=== PATIENT | female | born 1950 | race Caucasian/White ===

== ENCOUNTER 2020-04-25 10:53 | Outpatient (CLI) | payer OTHER, MEDICARE, SELFPAY ==
--- NOTE | ~2020-04-25 | CT_ITS ---
EXAMINATION: CT abdomen pelvis wo con DATE: 04/25/2020 11:35 INDICATION: Hematuria. Right-sided mid to lower abdominal pain. TECHNIQUE: Computed tomography (CT) of the abdomen and pelvis was performed without intravenous contr ast. Automated exposure control and iterative reconstruction technique were employed. The dose-length product was 410.16 mGy-cm. COMPARISON: None. FINDINGS: The visualized portions of the lung bases demonstrate minimal atelectasis. Calcified right hilar lymph nodes are consistent with old granulomatous disease. No pleural effusion. The heart size is normal. There are coronary artery calcifications. No pericardial effusion. There is a small slidin g hiatal hernia. There are cysts in the liver measuring up to 5.7 cm. Calcifications in the spleen ar e consistent with old granulomatous disease. The gallbladder, pancreas, and adrenal glands are normal . There is a 12 mm mass containing fat in right kidney, consistent with an angiomyolipoma. There is a 1.6 cm staghorn calculus in left kidney upper pole. There are peripelvic cysts in left kidney lower pole. There is diverticulosis of the colon without evidence of diverticulitis. There are no dilated l oops of bowel. The appendix is normal. There are no pathologically enlarged lymph nodes. There is no free intraperitoneal fluid. There is severe lower thoracic spondylosis and moderate lumbar spondylosi s. IMPRESSION: 1. Staghorn calculus in left kidney upper pole. Reviewed, dictated and finalized at location B.
== END 2020-04-25 10:54 | disposition home or self-care (01) ==
LOC: ANHIMG 11:01
PROVIDERS: PCP Internal Medicine; Visit Provider Nurse Practitioner
DX: N20.0 Calculus of kidney (principal)
CPT/HCPCS: 74176

== ENCOUNTER → 2020-05-20 08:59 | Outpatient (CLI) | payer OTHER, MEDICARE, SELFPAY ==
--- NOTE | ~2020-05-20 | XR_ITS ---
EXAMINATION: XR abdomen/kub 1V INDICATION: Kidney stones TECHNIQUE: Supine views of the abdomen were obtained on 2 radiographs. COMPARISON: CT, 04/25/2020r FINDINGS: A 1.6 cm stone projects in the left kidney upper pole. No additional urolithiasis is identi fied. The bowel gas pattern is normal. The visualized lung bases are clear. 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 IMPRESSION: 1. Unchanged 1.6 cm stone of the left kidney upper pole. Reviewed, dictated and finalized at location A. ENSATION/BENEFITS SPECIALIST
== END ==
PROVIDERS: PCP Internal Medicine; Visit Provider Urology
DX: N20.0 Calculus of kidney (principal); M47.816 Spondylosis without myelopathy or radiculopathy, lumbar region; M47.818 Spondylosis without myelopathy or radiculopathy, sacral and sacrococcygeal region
CPT/HCPCS: 74018

== ENCOUNTER 2020-09-30 08:11 | Outpatient (CLI) | payer OTHER, MEDICARE, SELFPAY | END 2020-09-30 08:12 | disposition home or self-care (01) | LOC: ANHCOVIDVC 08:11 | PROVIDERS: PCP Nurse Practitioner | DX: Z23 Encounter for immunization (principal) | CPT/HCPCS: 0001A; 91300 ==

== ENCOUNTER 2020-10-21 08:16 | Outpatient (CLI) | payer OTHER, MEDICARE, SELFPAY | END 2020-10-21 08:17 | LOC: ANHCOVIDVC 08:16 | PROVIDERS: PCP Nurse Practitioner | DX: Z23 Encounter for immunization (principal) | CPT/HCPCS: 0002A; 91300 ==

== ENCOUNTER 2025-05-10 10:00 | Outpatient (CLI) | payer MEDICARE, SELFPAY ==
--- NOTE | ~2025-05-10 | CT_ITS ---
CT abdomen pelvis w con Clinical History: R19.06 - Epigastric swelling, mass or lump . Comparison: None Technique: Axial images lung bases to symphysis pubis 100 mL Omnipaque 350 Coronal, sagittal reformats CT images acquired with automatic exposure control for dose reduction DLP: 431 mGy-cm Findings: Lung bases: Clear. Visualized heart and pericardium: Coronary artery calcifications. Liver: Prominent bilobar cysts. Gallbladder: Unremarkable. Spleen: Unremarkable. Pancreas: Unremarkable. Adrenal glands: Unremarkable. Kidneys: Bilateral cysts. Right kidney- No hydronephrosis. No renal stones. Left kidney- No hydronephrosis. No renal stones. Distal esophagus/stomach: Unremarkable. Small bowel loops: Normal caliber and wall thickness. Colon: Diverticula. Normal caliber and wall thickness. Normal RLQ appendix. Nodes: No enlarged nodes. Peritoneum: No ascites. No free air. Urinary bladder: Unremarkable. Uterus: Unremarkable. Adnexa: No masses. Bones: No acute bony abnormality. Soft tissues: Supraumbilical ventral hernia containing fat, with stranding of fat. Aorta: No aneurysm or dissection. Atherosclerotic disease. IVC: Unremarkable. Main portal vein/SMV/splenic vein: Patent. IMPRESSION: 1. Supraumbilical ventral hernia containing fat, with evidence of panniculitis and/or fat strangulation. 2. No other acute abnormality. Reviewed, dictated and finalized at location R.
--- OUTSIDE RECORDS SUMMARY | 2025-05-10 10:18 | XMS_ITS | Clinical Summary ---
Author Organization [facility] Address [address] [place] [address] Phone Care Team Providers Care Tool Room Attendant Name Role Phone Rahul Martinez DO Primary Care Provider Allergies Active Allergy Reactions Criticality Noted Date Comments Aspirin Unknown 05/01/2018 Penicillins Swelling 05/01/2018 Hives and itching Medications atorvastatin (LIPITOR) 20 MG Tablet Take 20 mg by mouth daily. 0 9 Active traMADol (ULTRAM) 50 MG Tablet Take 1 Tab by mouth every 6 hours as needed for Moderate or more severe pain. 20 Tab 9 Active Additional Information Patient not taking.Reported on 06/23/2020 tamsulosin (FLOMAX) 0.4 MG CapsuleIndicati ons:Renal stone Take 1 Cap by mouth daily. 90 Cap 9 Active Additional Information Patient not taking.Reported on 06/23/2020 verapamil (CALAN-SR) 240 MG Tablet Controlled Release Take 240 mg by mouth daily. 0 Active triamterene-hyd rochlorothiazid e (MAXZIDE) 37.5-25 MG Tablet TAKE 1 TABLET BY MOUTH EVERY MORNING 0 Active Active Problems No known active problems Family History Medical History Relation Name Comments Parkinsonism Father Cancer Mother pancreatic Relation Name Status Comments Father Mother Social History Tobacco Use Types Packs/Day Years Used Date Smoking Tobacco: Former Cigarettes Q uit: 05/01/2013 Smokeless Tobacco: Never Tobacco Cessation:Counseling Given: No Alcohol Use Standard Drinks/Week Comments Yes 0 (1 standard drink = 0.6 oz pur e alcohol) rarely Comments No Sex and Gender Information Value Date Recorded Sex Assigned at Not on file Legal Sex Female 8:58 PM CDT Gender Identity Not on file Sexual Orientation Not on file Last Filed Vital Signs Vital Sign Reading Time Taken Comments Blood Pressure 140/86 06/23/2020 11:59 AM REGISTERED HEALTH NURSE Pulse 87 06/23/2020 11:59 AM REGISTERED HEALTH NURSE Temperature 36.1 C (97 F) 06/23/2020 11:59 AM REGISTERED HEALTH NURSE Respiratory Rate 20 06/23/2020 11:59 AM REGISTERED HEALTH NURSE Oxygen Saturation 96% 06/23/2020 11:59 AM REGISTERED HEALTH NURSE Inhaled Oxygen Concentration - - Weight 70.3 kg (155 lb) 06/23/2020 11:59 AM REGISTERED HEALTH NURSE Height 162.6 cm (5' 4) 02/22/2019 3:34 PM CDT Body Mass Index 26.61 02/22/2019 3:34 PM CDT Plan of Treatment Health Maintenance Due Date Last Done Comments DEXA Bone Density 1950 Hepatitis C Virus (HCV) Screening 1950 TdaP Immunization 1950 Cologuard 1994 Colonoscopy 1994 Colorectal Cancer Screening 1994 Immunochemical Fecal Occult Blood 1994 Pneumococcal Immunization (5 0+ years) (1 of 1 - PCV) 09/26/1999 Zoster Immunization (1 of 2) 09/26/1999 Medicare Initial AWV G0438 01/16/2016 Respiratory Syncytial Virus (RSV) Immunization (Adult) (1 - 1-dose 75+ series) 2024 Influenza Immunization (#1) 2025 05/25/2012 SARS-COV-2 Immunization (3 - season) 2025 10/21/2020, 09/30/2020 Mammogram Discontinued 08/13/2021, 04/17/2018 Hepatitis B Immunization Aged Out No longer eligible based on patient's age to complete this topic Human Papillomavirus (HPV) Immunization Aged Out No longer eligible based on patient's age to complete this topic Meningococcal Immunization (ACWY) Aged Out No longer eligible based on patient's age to complete this topic Rotavirus Immunization Aged Out No lo nger eligible based on patient's age to complete this topic Procedures Procedure Name Priority Date/Time Associated Diagnosis Comments GUME SCREENING BILATERAL DIGITAL W CAD W PAUL Routine 08/13/2021 5:14 PM REGISTERED HEALTH NURSE Visit for screening mammogram from Last 3 Months or Most Recently Relevant to Health Maintenance Results * GUME SCREENING BILATERAL DIGITAL W CAD W PAUL (08/13/2021 5:14 PM REGISTERED HEALTH NURSE) Anatomical Region Laterality Modality breast Bilateral Mammography 08/13/2021 4:41 PM REGISTERED HEALTH NURSE Narrative 08/17/2021 5:18 PM REGISTERED HEALTH NURSE - GUME SCREENING BILATERAL DIGITAL W CAD W PAUL BILATERAL DIGITAL SCREENING MAMMOGRAM 3D/2D WITH CAD WITH MEDIOLATERAL OBLIQUE CRANIOCAUDAL: 08/13/2021 The study was acquired using digital technology and interpreted from soft copy. Current study was also evaluated with JumpidoD version 7.2. 2D digital mammographic views, as well as 3D digital tomosynthesis were performed in the CC and MLO projections. CLINICAL: Routine screening. Patient has no complaints. No personal history of cancer. No family history of breast cancer. Limited ROM of shoulders. COMPARISONS: Comparison is made to exams dated: 04/17/2018, 12/27/2014, and 12/04/2010 [facility]. BREAST TISSUE:The tissue of both breasts is heterogeneously dense. This may lower the sensitivity of mammography. FINDINGS: There is a mass in the left breast at 1 o'clock posterior depth. There also is an asymmetry in the left breast anterior depth medial region seen on the craniocaudal view only. No other significant masses, calcifications, or other findings are seen in either breast. IMPRESSION: BI-RAD 0 ADDITIONAL IMAGING EVALUATION NEEDED The mass in the left breast at 1 o'clock posterior depth needs additional evaluation. The asymmetry in the left breast anterior depth medial region seen on the craniocaudal view only is indeterminate. An immediate follow-up is recommended. A letter will be sent to the patient with these results. Electronically signed by: Tessie dill/chucky:08/17/2021 14:59:52 Torch Heater(s): RT Santo(R)(M), [facility] letter sent: Additional Imaging Reading location: [facility] BI-RADS: 0 Additional Imaging Evaluation Needed Procedure Note Tessie Odom MD - 08/17/2021 - GUME SCREENING BILATERAL DIGITAL W CAD W PAUL BILATERAL DIGITAL SCREENING MAMMOGRAM 3D/2D WITH CAD WITH MEDIOLATERAL OBLIQUE CRANIOCAUDAL: 08/13/2021 The study was acquired using digital technology and interpreted from soft copy. Current study was also evaluated with ICAD version 7.2. 2D digital mammographic views, as well as 3D digital tomosynthesis were performed in the CC and MLO projections. CLINICAL: Routine screening. Patient has no complaints. No personal history of cancer. No family history of breast cancer. Limited ROM of shoulders. COMPARISONS: Comparison is made to exams dated: 04/17/2018, 12/27/2014, and 12/04/2010 [facility]. BREAST TISSUE:The tissue of both breasts is heterogeneously dense. This may lower the sensitivity of mammography. FINDINGS: There is a mass in the left breast at 1 o'clock posterior depth. There also is an asymmetry in the left breast anterior depth medial region seen on the craniocaudal view only. No other significant masses, calcifications, or other findings are seen in either breast. IMPRESSION: BI-RAD 0 ADDITIONAL IMAGING EVALUATION NEEDED The mass in the left breast at 1 o'clock posterior depth needs additional evaluation. The asymmetry in the left breast anterior depth medial region seen on the craniocaudal view only is indeterminate. An immediate follow-up is recommended. A letter will be sent to the patient with these results. Electronically signed by: Tessie dill/chucky:08/17/2021 14:59:52 Torch Heater(s): RT Santo(R)(M), [facility] letter sent: Additional Imaging Reading location: [facility] BI-RADS: 0 Additional Imaging Evaluation Needed Genevieve Cotto APRN IMG MAMMO ORDERABLES Final Re sult from Last 3 Months or Most Recently Relevant to Health Maintenance Insurance MEDICARE C [place] Care Teams Tool Room Attendant Relationship Specialty Start Date End Date Rahul Martinez DO [address] [facility] [facility] [place], [place] [id number] PCP - General Internal Medicine 06/01/22
--- OUTSIDE RECORDS SUMMARY | 2025-05-10 10:18 | XMS_ITS | Encounter Summary ---
Author Organization [facility] Address [address] [place] [address] Phone Care Team Providers Care Juvenile Probation Officer Name Role Phone Genevieve Cotto APRN Primary Care Provider [phone] Rahul Martinez DO Primary Care Provider Encounter Details Date Type Department Care Team (Latest Contact Info) Description 06/23/2021 Transcribe Orders [facility] Patient Access [facility] [address] [facility] [place] [address] Genevieve Cotto APRN [address] [place] [address] Screening for thyroid disorder (Primary Dx); Hyperglycemia; Encounter for screening for other suspected endocrine disorder; Screening for lipoid disorders Social History Tobacco Use Types Packs/Day Years Used Date Smoking Tobacco: Former Cigarettes Q uit: 05/01/2013 Smokeless Tobacco: Never Alcohol Use Standard Drinks/Week Comments Yes 0 (1 standard drink = 0.6 oz pur e alcohol) rarely Comments No Sex and Gender Information Value Date Recorded Sex Assigned at Not on file Legal Sex Female 8:58 PM CDT Gender Identity Not on file Sexual Orientation Not on file COVID-19 Exposure Response Date Recorded In the last month, have you been in contact with someone who was confirmed or suspected to have Coronavirus / COVID-19? No / Unsure 06/23/2021 9:21 AM REGIONAL FACILITIES MANAGER documented as of this encounter Plan of Treatment Not on file documented as of this encounter Results * (ABNORMAL) LIPID PANEL (06/23/2021 9:53 AM REGIONAL FACILITIES MANAGER) Pathologist [facility] CHOLESTEROL 232(H) <=200 mg/dL 06/23/2021 10:36 AM REGIONAL FACILITIES MANAGER [facility] TRIGLYCERIDES 158(H) <150 mg/dL 06/23/2021 10:36 AM REGIONAL FACILITIES MANAGER [facility] HDL CHOLESTEROL 55.1 >40 mg/dL 10:36 AM [facility] LDL 145(H) 5 - 130 mg/dL 06/23/2021 10:36 AM REGIONAL FACILITIES MANAGER [facility] VLDL 32 5 - 55 mg/dL 06/23/2021 10:36 AM [facility] CHOL/HDL RATIO 4.2 0.0 - 4.4 06/23/2021 10:36 AM [facility] NON-HDL CHOLESTEROL 176.9(H) <130 mg/dL 06/23/2021 10:36 AM [facility] IS THE PATIENT REQUIRED TO BE FASTING? No 06/23/2021 10:36 AM [facility] Blood Venipuncture / Unknown 06/23/2021 9:53 AM REGIONAL FACILITIES MANAGER 06/23/2021 10:10 AM REGIONAL FACILITIES MANAGER us Genevieve Cotto APRN CHEMISTRY ORDERABLES Final Re sult [facility] [address] [place] [address] * (ABNORMAL) HEMOGLOBIN A1C W/ ESTIMATED GLUCOSE (06/23/2021 9:53 AM REGIONAL FACILITIES MANAGER) [facility] HGB-A1C 6.2(H) 4.0 - 6.0 % 06/23/2021 10:45 AM [facility] Est Average Glucose 131.2 mg/dL 06/23/2021 10:45 AM [facility] Blood Venipuncture / Unknown 06/23/2021 9:53 AM REGIONAL FACILITIES MANAGER 06/23/2021 10:10 AM REGIONAL FACILITIES MANAGER Narrative [facility] - 06/23/2021 10:45 AM REGIONAL FACILITIES MANAGER HEMOGLOBIN A1C: DIABETIC PATIENTS: WELL-CONTROLLED: 6.2 - 7.0 INTERMEDIATE WELL-CONTROLLED: 7.0 - 9.0 POORLY-CONTROLLED: >9.0 us Genevieve Cotto CARNIVAL WORKER CHEMISTRY ORDERABLES Final Re sult [facility] [place] [address] * (ABNORMAL) CMP (COMPREHENSIVE METABOLIC PANEL) (06/23/2021 9:53 AM [facility]) SODIUM 139 136 - 144 mmol/L 06/23/2021 10:36 AM [facility] POTASSIUM 3.9 3.5 - 5.1 mmol/L 06/23/2021 10:36 AM [facility] CHLORIDE 103 100 - 110 mmol/L 06/23/2021 10:36 AM [facility] CO2, VENOUS 23 22 - 32 mmol/L 06/23/2021 10:36 AM [facility] ANION GAP 16.9 8.0 - 20.0 mmol/L 06/23/2021 10:36 AM [facility] GLUCOSE 108(H) 70 - 99 mg/dL 06/23/2021 10:36 AM [facility] BUN 12 8 - 23 mg/dL 06/23/2021 10:36 AM [facility] CREATININE, BLOOD 0.52(L) 0.60 - 1.10 mg/dL 06/23/2021 10:36 AM [facility] BUN/CREATININE RATIO 23(H) 12 - 20 ratio 06/23/2021 10:36 AM [facility] TOTAL PROTEIN 7.7 6.0 - 8.3 g/dL 06/23/2021 10:36 AM [facility] ALBUMIN 4.5 3.5 - 5.2 g/dL 06/23/2021 10:36 AM [facility] Comment: The colormetric methods used for the determination of Albumin may lead to falsely elevated test results in patients suffering from renal failure or insufficiency due to interference with other proteins. A/G RATIO 1.4 1.0 - 2.0 06/23/2021 10:36 AM [facility] CALCIUM 9.4 8.9 - 10.3 mg/dL 06/23/2021 10:36 AM [facility] T BILI 0.5 <=1.2 mg/dL 06/23/2021 10:36 AM [facility] SGOT (AST) 18 <=32 U/L 06/23/2021 10:36 AM [facility] SGPT (ALT) 16 <=41 U/L 06/23/2021 10:36 AM [facility] ALKALINE PHOSPHATASE 85 35 - 105 U/L 06/23/2021 10:36 AM [facility] GFR, EST. NONAFRICAN >60 >=60 06/23/2021 10:36 AM [facility] GFR, EST. >60 >=60 021 10:36 AM [facility] Comment: Creatinine Clearance is the preferred criteria for selecting drug dose adjustments in renally impaired patients. The GFR is provided as additional pertinent clinical information. GFR is reported in mL/min/1.73 sq m. IS THE PATIENT REQUIRED TO BE FASTING? No 06/23/2021 10:36 AM [facility] Blood Venipuncture / Unknown 06/23/2021 9:53 AM [facility] 06/23/2021 10:10 AM [facility] us Genevieve Cotto CARNIVAL WORKER CHEMISTRY ORDERABLES Final Re sult [facility] [place] [address] documented in this encounter Visit Diagnoses Diagnosis Screening for thyroid disorder- Primary Hyperglycemia Other abnormal glucose Encounter for screening for other suspected endocrine disorder Screening for lipoid disorders documented in this encounter Care Teams Juvenile Probation Officer Relationship Specialty Start Date End Date Genevieve Cotto APRN [address] [place] [address] PCP - General Pain Medicine-Pain Management 09/24/20 05/31/22 Rahul Martinez DO [address] [place] [address] PCP - General Internal Medicine 06/01/22 documented as of this encounter
--- OUTSIDE RECORDS SUMMARY | 2025-05-10 10:18 | XMS_ITS | Encounter Summary ---
Author Organization [facility] Address [address] [place] [address] Phone Care Team Providers Care Photo Equipment Technician Name Role Phone Timothy Soto MD Primary Care Provid er Genevieve Cotto APRN Primary Care Provider [phone] Rahul Martinez DO Primary Care Provider Encounter Details Date Type Department Care Team (Latest Contact Info) Description 06/27/2020 [facility] [place] [address] [place] [address] [place] [address] Calculus of kidney (Primary Dx) Social History Tobacco Use Types Packs/Day Years [...] have Coronavirus / COVID-19? No / Unsure 06/30/2020 1:52 PM WEB MARKETING ANALYST documented as of this encounter Plan of Treatment Not on file documented as of this encounter Results * CULTURE, URINE (06/30/2020 2:03 PM WEB MARKETING ANALYST) CULTURE RESULTS GROWTH OF 1 OR MORE ORGANISMS, ALL ARE LESS THAN 10,000 CFU/ML . SUGGESTIVE OF DISTAL URETHRAL CONTAMINANTS. 07/01/2020 6:15 PM WEB MARKETING ANALYST [facility] Culture URINE SPECIMEN / Unknown Non-Phlebotomy Collection / Unknown 06/30/2020 2:03 PM WEB MARKETING ANALYST 06/30/2020 2:35 PM WEB MARKETING ANALYST us Timothy Soto MD MICROBIOLOGY - GENER AL ORDERABLES Final Result [facility] [address] [place] [address], documented in this encounter Visit Diagnoses Diagnosis Calculus of kidney- Primary documented in this encounter Care Teams Photo Equipment Technician Relationship Specialty Start [place] [address] [place] [address] PCP - General Urology 06/19/20 09/23/20 Genevieve Cotto APRN [address] [place] [address] PCP - General Pain Medicine-Pain Management 09/24/20 05/31/22 Rahul Martinez DO [facility] [place] [address] PCP - General Internal Medicine 06/01/22 documented as of this encounter
--- OUTSIDE RECORDS SUMMARY | 2025-05-10 10:18 | XMS_ITS | Clinical Summary ---
Author Organization [facility] Address [address] [place] [address] Care Team Providers Care Antenna Rigger Name Role Phone Rahul Martinez DO Primary Care Provider Allergies Active Allergy Reactions Criticality Noted Date Comments Aspirin Rash Medium 05/01/2018 Penicillins Swelling Medium 05/01/2018 Hives and itching Medications verapamil SR (CALAN SR) 240 mg CR tablet Take 240 mg by mouth daily 5 01/22/2019 Active triamterene-hydr oCHLOROthiazide (MAXZIDE,DYAZIDE ) 37.5-25 mg per tablet/capsule Take 1 tablet/caps ule by mouth daily Active atorvastatin (LIPITOR) 10 mg tablet Take 10 mg by mouth daily Active multivitamin/iro n/folic acid (CENTRUM WOMEN ORAL) Take by mouth Active CALCIUM ORAL Take by mouth Active hydroCHLOROthiaz nirmala (HYDRODIURIL) 25 mg tablet Take 25 mg by mouth daily 08/11/2021 Active triamterene (DYRENIUM) 50 mg capsule 08/13/2021 Active Active Problems Problem Noted Date Diagnosed Date Bilateral primary osteoarthritis of hip 08/27/19 22 Aftercare following left shoulder joint replacem ent surgery 04/13/2019 S/P reverse total shoulder arthroplasty, left Closed fracture of left proximal humerus 019 Overview (02/26/2019): Added automatically from request for surgery [id number] Surgical History Surgery Date Site/Laterality Comments HYSTERECTOMY KIDNEY STONE SURGERY FL FLUORO GUIDED INJECTION HIP LEFT 09/04/2021 Left FLUORO GUIDED INJECTION HIP RIGHT 09/04/2021 Right Medical History Medical History Date Comments Hypertension Kidney stone Asthma Hyperlipidemia Family History Medical History Relation Name Comments Asthma Other Cancer Other Diabetes Other Heart disease Other Hypertension Other Kidney disease Other Relation Name Status Comments Other Social History Tobacco Use Types Packs/Day Years Used Date Smoking Tobacco: Former Smokeless Tobacco: Never Alcohol Use Standard Drinks/Week Comments Yes 0 (1 standard drink = 0.6 oz pur e alcohol) occasional PHQ-2 Answer Date Recorded PHQ-2 Score 0 03/07/2019 Comments No Sex and Gender Information Value Date Recorded Sex Assigned at Not on file Legal Sex Female 7:27 PM METALIZER FIELD OPERATION Gender Identity Not on file Sexual Orientation Not on file Obstetrics History Last Filed Vital Signs Vital Sign Reading Time Taken Comments Blood Pressure 168/108 08/27/2021 10:56 AM METALIZER FIELD OPERATION Pulse 103 08/27/2021 10:56 AM METALIZER FIELD OPERATION Temperature 36.7 C (98 F) 03/13/2019 1:32 PM CDT Respiratory Rate 18 03/13/2019 1:32 PM CDT Oxygen Saturation 95% 03/13/2019 1:32 PM CDT Inhaled Oxygen Concentration - - Weight 71.2 kg (157 lb) 08/27/2021 10:56 AM METALIZER FIELD OPERATION Height 162.6 cm (5' 4) 08/27/2021 10:56 AM METALIZER FIELD OPERATION Body Mass Index 26.95 08/27/2021 10:56 AM METALIZER FIELD OPERATION Plan of Treatment Not on file Medical Devices Implanted Type Area Roller Mechanic Device Identifier Shelf Expiration Date Model / Serial / Lot [employer] 1375.21.005 Smr Revision Metal Back Shoulder Small Component Glenoid Titanium - [id number] Implanted:Qty: 1 on 03/01/2019 by Warner Huggins MD at [facility] Left: Shoulder [employer] 10/16/2023 1375.21.005 / / [id number] [employer] 8420.15.040 Smr 6.5mm 35mm Revision Shoulder Screw Bone Titanium - [id number] Implanted:Qty: 1 on 03/01/2019 by Warner Huggins MD at [facility] Left: Shoulder [employer] 01/14/2023 8420.15.040 / / [id number] [employer] 8420.15.030 Smr 6.5mm 30mm Modular Replacement Shoulder Screw Bone Titanium - [id number] Implanted:Qty: 1 on 03/01/2019 by Warner Huggins MD at [facility] Left: Shoulder [employer] 08/17/2023 8420.15.030 / / [id number] [employer] 1374.15.305 Cmpnt Glenoid Small-R Cnctr Screw Rev Smr Ti - [id number] Implanted:Qty: 1 on 03/01/2019 by Warner Huggins MD at [facility] Left: Shoulder [employer] 08/17/2023 1374.15.305 / / [id number] [employer] Smr Shoulder [employer] [id number] Implanted:Qty: 1 on 03/01/2019 by Warner Huggins MD at [facility] Left: Shoulder [employer] [id number] 06/16/2023 [id number] / / [id number] [employer] 1304.15.150 Smr 15mm 80mm Finned Cementless Shoulder Stem Humeral Titanium - [id number] Implanted:Qty: 1 on 03/01/2019 by Warner Huggins MD at [facility] Left: Shoulder [employer] 10/16/2023 1304.15.150 / / [id number] [employer] 1352.15.050 Body Humrl Smr Shldr Ti Finned Rvrs Lock Screw - [id number] Implanted:Qty: 1 on 03/01/2019 by Warner Huggins MD at [facility] Left: Shoulder [employer] 12/15/2022 1352.15.050 / / [id number] Smr Shoulder Reverse Liner Implanted:Qty: 1 on 03/01/2019 by Wanrer Huggins MD at [facility] Left: Shoulder [employer] [id number] 06/16/2020 [id number] / / [id number] Insurance [employer] CHOICE MEDICARE PPO CHOICE PLUS Advance Directives For more information, please contact: [phone] * Full Code (Latest Code Status on File) Date Activated Date Inactivated Comments 03/01/2019 4:38 PM 03/03/2019 6:54 PM Care Teams Antenna Rigger Relationship Specialty Start Date End Date Rahul Martinez DO PCP - General Internal Medicine 07/24/21
--- OUTSIDE RECORDS SUMMARY | 2025-05-10 10:18 | XMS_ITS | Clinical Summary ---
Author Organization [facility] Address [address] [place] [address] Care Team Providers Care [employer] Name Role Phone Unavailable Primary Care Provider Unavailabl e Source Comments [facility],non-owned Affiliates and Associated Physician Practices is amultiple site organization consisting of ambulatory clinics and hospital sitesin [place], [place], [place] and [place]. This disclosure is being madepursuant to the Care Everywhere program and may not contain all information available regarding this patient. Last updated 18.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[employer] Gender Identity Not on file Sexual Orientation Not on file Plan of Treatment Health Maintenance Due Date Last Done Comments BONE DENSITY TESTING 1950 COLOGUARD (AGES 45-75) - COL ON CA SCREENING 1949 COLON MONITORING 1949 COLONOSCOPY - COLON CA SCREENING 1949 CT COLONOGRAPHY - COLON CA SCREENING 1950 Colorectal Cancer Screening 1950 FIT - COLON CA SCREENING 1949 FLEX SIG - COLON CA SCREENING 1949 LIPID TESTING 1949 MAMMOGRAM 1949 HEPATITIS C SCREENING 09/21/1967 DTAP/TDAP/TD VACCINES (1 - Tdap) 1968 PNEUMOCOCCAL VACCINE 50+ (1 of 1 - PCV) 09/26/1999 ZOSTER VACCINE (1 of 2) 09/26/1999 DEPRESSION SCREENING 07/18/2024 Respiratory Syncytial Virus (RSV) Vaccine Pt: or over 60 yrs (1 - 1-dose 75+ series) 2024 COVID-19 VACCINE ( - 2023-2 5 season) 2025 INFLUENZA VACCINE (#1) 2025 HEPATITIS B VACCINE Aged Out No longe r eligible based on patient's age to complete this topic HIB VACCINE Aged Out No longer eligi ble based on patient's age to complete this topic HPV VACCINE Aged Out No longer eligi ble based on patient's age to complete this topic MENINGOCOCCAL (Group B) VACC INE SHARED DECISION-MAKING Aged Out No longer eligibl e based on patient's age to complete this topic MENINGOCOCCAL GROUPS A/C/Y/W VACCINE Aged Out No longer eligible b ased on patient's age to complete this topic Insurance MEDICARE MEDICARE [facility]
[2025-05-10 10:31] LABS: Estimated Glomerular Filt Rate > 60
[2025-05-10 11:34] LABS: Hematocrit 43.2 % (37.0-47.0); Hemoglobin 14.0 g/dL (12.0-15.0); Immature Granulocyte Percent A 0.4 % (0-0.5); Lymphocytes Absolute Auto 1.30 K/mm3 (0.9-3.2); Mean Corpuscular HGB Conc 32.4 g/dl (32-36); Mean Corpuscular Hemoglobin 30.2 pg (26-34); Mean Corpuscular Volume 93.3 fl (80-100); Nucleated Red Blood Cells Absolute Auto 0.000 K/mm3 (0.0-0.012); Nucleated Red Blood Cells Perc 0.0 % (0.0-0.2); Platelet Count Result 331 k/mm3 (150-375); Red Blood Count 4.63 M/mm3 (4.2-5.4); White Blood Count 9.5 K/mm3 (4.5-10.0)
[2025-05-10 11:47] LABS: Alanine Aminotransferase 19 U/L (6-35); Albumin Level 4.6 g/dL (3.5-5.1); Alkaline Phosphatase 93 U/L (38-126); Anion Gap 12 mmol/L (4-12); Aspartate Amino Transferase 25 U/L (14-36); Bilirubin,Total 1.2 mg/dL (0.2-1.3); Blood Urea Nitrogen 15 mg/dL (7-17); Calcium 9.4 mg/dL (8.4-10.2); Carbon Dioxide 25 mmol/L (22-30); Chloride 96 mmol/L (98-107); Estimated Glomerular Filt Rate > 60; Glucose 112 mg/dL (65-110); Potassium 4.5 mmol/L (3.4-5.0); Sodium 133 mmol/L (137-145); Total Protein 8.1 g/dL (6.3-8.2)
== END 2025-05-10 10:01 | disposition home or self-care (01) ==
LOC: ANHIMG 10:01
PROVIDERS: PCP Internal Medicine; Visit Provider Nurse Practitioner
DX: R19.06 Epigastric swelling, mass or lump (principal); I10 Essential (primary) hypertension; K43.9 Ventral hernia without obstruction or gangrene; M79.3 Panniculitis, unspecified; E65 Localized adiposity
CPT/HCPCS: 36415; 74177; 80053; 85025; Q9967